=== PATIENT | female | born 2000 | race Caucasian/White ===

== ENCOUNTER 2024-12-26 19:04 | Emergency (ER) | payer OTHER, SELFPAY ==
--- NOTE | ~2024-12-26 | XR_ITS ---
CLINICAL HISTORY: asthma attack 1 view chest x-ray Comparison: None Findings: No consolidation or effusion. Normal size heart. No acute fracture. IMPRESSION: 1. No acute findings. This document has been electronically signed by: Alexander Gonsalves MD on 12/26/2024 20:16:21
[2024-12-26 19:17] VITALS: BP 109/62; BP 125/67; PULSE 66; PULSE 83; RESP 16; TEMP 36.9; O2SAT 100; O2SAT 97; BMI 31.6
[2024-12-26 19:58] LABS: MANUAL DIFF FLAG NO
[2024-12-26 20:01] LABS: Basophils Percent Auto 0.4 % (0-2); Eosinophils Absolute Auto 0.1 X10*3/uL (0.0-0.4); Eosinophils Percent Auto 0.7 % (0-4); Hematocrit 40.8 % (37.0-47.0); Hemoglobin 14.4 g/dl (12.0-16.0); Imm Gran Abs Auto 0.02 X10*3/uL (0.00-0.03); Imm Gran Pct Auto 0.2 % (0.0-0.4); Lymphocytes Absolute Auto 1.7 X10*3/uL (1.2-4.9); Mean Corpuscular HGB Conc 35.3 g/dl (31.0-35.0); Mean Corpuscular Volume 90.7 fL (80.0-98.0); Mean Platelet Volume 8.9 fL (9.4-12.3); Monocytes Absolute Auto 0.6 X10*3/uL (0.1-1.2); Monocytes Percent Auto 5.5 % (2-11); Neutrophils Absolute Auto 8.2 x10*3/uL (2.0-8.3); Neutrophils Percent Auto 77.2 % (45-73); Platelet Count 345 X10*3/uL (160-400); Red Cell Distribution Width 12.3 % (11.0-16.0); White Blood Count 10.6 X10*3/uL (4.8-10.8)
[2024-12-26 20:14] LABS: Alanine Aminotransferase 16 U/L (0-31); Albumin Level 4.5 g/dL (3.5-5.0); Alkaline Phosphatase 74 U/L (39-117); Anion Gap 15 (12-20); Aspartate Amino Transferase 22 U/L (5-31); Bilirubin Total 0.4 mg/dL (0.0-1.0); Blood Urea Nitrogen 9 mg/dL (9-16); Calcium 9.1 mg/dL (8.4-10.2); Carbon Dioxide 20 mmol/L (22-29); Chloride 109 mmol/L (96-108); Creatinine Clr Calc Pharmacy 105.4; Estimated Glomerular Filt Rate > 60; Glucose Random 100 mg/dL (60-115); Potassium 3.5 mmol/L (3.3-5.1); Sodium 140 mmol/L (135-145); Total Protein 8.2 g/dL (6.5-8.0)
[2024-12-26 20:22] LABS: HCG Quantitative < 2 mIU/mL
[2024-12-26 20:37] LABS: Influenza A PCR NEGATIVE (Negative); Influenza B PCR NEGATIVE (Negative); Resp Syncy Virus RNA Qual PCR NEGATIVE (Negative); SARS COV2 PCR INHOUSE NEGATIVE (Negative)
[2024-12-26 22:31] VITALS: BP 123/67; PULSE 65; RESP 16; TEMP 36.4; O2SAT 99
--- NOTE | 2024-12-26 22:57 | ED_ITS ---
HPI - Asthma General Chief Complaint: Asthma Stated Complaint: SOB, coming from pd lockup Time Seen by Provider: 12/26/24 22:57 History of Present Illness ED Provider: Marlon ECHEVERRIA Narrative: The patient is a 24-year-old female who was taken into police custody today. She has a history of asthma. She says that when she was taken into custody she should not have her albuterol inhaler. She says that she developed shortness of breath at the police lock up. An ambulance was called and she was brought to the hospital. She received a DuoNeb from paramedics. She was feeling better by the time she arrived here. She has had no fever, sweats, chills. She does not feel that she would require prednisone at this point but she is hoping for an albuterol inhaler. Related Data Allergies Allergy/AdvReac Type Severity Reaction Status Date / Time chlorpheniramine Allergy Severe HIVES Verified 12/26/24 19:31 [From TRIAMINIC] From TRIAMINIC Allergy Severe HIVES Uncoded 12/26/24 19:31 Review of Systems 2 Review of Systems: Yes all other systems are reviewed and are negative [facility] Social History Social History Smoked in Last 30 Days: No Use of substances other than those prescribed or required for medical reasons: No Substance Use Type: Marijuana Advance Directives: No Advance Directives Information Provided: Yes Do you have a plan to hurt others: No Plan Patient : No Physical Exam 2 Vital Signs: Vital Signs: Last Vital Signs Temp 97.5 F 12/26/24 23:31 Pulse 65 12/26/24 23:31 Resp 16 12/26/24 23:31 BP 123/67 12/26/24 23:31 Pulse Ox 99 12/26/24 23:31 O2 Del Method Room Air 12/26/24 23:31 BMI result Body Mass Index 31.6 Const: Other: the patient is awake, alert, pleasant, cooperative. She does not appear in distress at all. Orientation/consciousness: patient oriented x3 HEENT: Head: Yes normal to inspection Face and sinus: Yes normal facial exam Mouth: Normal oral and palatal mucosa present and moist mucous membranes Eyes: General: appearance normal, both eyes and all related structures Neck: Neck: Yes full ROM and Yes no lymphadenopathy Resp: Effort & Inspection: normal respiratory effort Auscultation: clear to auscultation bilaterally Cardio: Rate: regular rate Rhythm: regular rhythm Heart sounds: S1 normal heart sound present and S2 normal heart sound present GI: Other: Abdomen is soft and nontender Skin: General skin exam: no rashes or lesions noted Neuro: General: patient oriented x3, tone normal, no focal motor deficits and CN's II-XI intact bilaterally Extrem: Other: no calf swelling or tenderness. No asymmetry. No edema. Medications Administered Discontinued Medications Generic Name Dose Route Start Last Admin Trade Name Anayeli PRN Reason Stop Dose Admin Albuterol Sulfate 2 puff 12/26/24 23:27 12/26/24 23:34 Albuterol Sulfate 90 Mcg 8 Gm Inhaler INHALE 12/26/24 23:28 2 puff ONCE ONE Administration Medical Decision Making Medical Decision Making [facility] Narrative: The patient is a 24-year-old in police custody who complained of shortness of breath after being taken into custody and was brought here by police for evaluation of these symptoms. The patient says she is an asthmatic who normally uses her inhaler every 4 hours. She received a bronchodilator treatment prior to my evaluation and her lungs now sound clear. She was asked whether she might benefit from prednisone. She did not think so. She says she has a lot of experience with asthma. She simply wants to have access to an albuterol while she is in police lock up. She will be discharged with an albuterol inhaler. Lab Data 12/26/24 19:54 12/26/24 19:54 Labs: Lab Results 12/26/24 Range/Units 19:54 WBC 10.6 (4.8-10.8) X10*3/uL RBC 4.50 (4.20-5.50) X10*6/uL Hgb 14.4 (12.0-16.0) g/dl Hct 40.8 (37.0-47.0) % MCV 90.7 (80.0-98.0) fL MCH 32.0 (27.0-33.0) pg MCHC 35.3 H (31.0-35.0) g/dl RDW 12.3 (11.0-16.0) % Plt Count 345 (160-400) X10*3/uL MPV 8.9 L (9.4-12.3) fL Immature Gran % (Auto) 0.2 (0.0-0.4) % Neut % (Auto) 77.2 H (45-73) % Lymph % (Auto) 16.0 L (20-40) % Chambers % (Auto) 5.5 (2-11) % Eos % (Auto) 0.7 (0-4) % Baso % (Auto) 0.4 (0-2) % Lymph # (Auto) 1.7 (1.2-4.9) X10*3/uL Chambers # (Auto) 0.6 (0.1-1.2) X10*3/uL Eos # (Auto) 0.1 (0.0-0.4) X10*3/uL Baso # (Auto) 0.0 (0.0-0.2) X10*3/uL Abs Immat Gran (auto) 0.02 (0.00-0.03) X10*3/uL Absolute Neuts (auto) 8.2 (2.0-8.3) x10*3/uL Absolute Nucleated RBC 0.000 (0.0-0.012) X10*3/uL Nucleated RBC % (auto) 0.0 (0.0-0.2) /100WBC Sodium 140 (135-145) mmol/L Potassium 3.5 (3.3-5.1) mmol/L Chloride 109 H (96-108) mmol/L Carbon Dioxide 20 L (22-29) mmol/L Anion Gap 15 (12-20) BUN 9 (9-16) mg/dL Creatinine 0.76 (0.5-1.4) mg/dL Estim Creat Clear Calc 105.4 Estimated GFR > 60 Random Glucose 100 (60-115) mg/dL Calcium 9.1 (8.4-10.2) mg/dL Total Bilirubin 0.4 (0.0-1.0) mg/dL AST 22 (5-31) U/L ALT 16 (0-31) U/L Alkaline Phosphatase 74 (39-117) U/L Total Protein 8.2 H (6.5-8.0) g/dL Albumin 4.5 (3.5-5.0) g/dL Beta HCG, Quant < 2 mIU/mL Influenza Type A (PCR) NEGATIVE (Negative) Influenza Type B (PCR) NEGATIVE (Negative) RSV RNA Qual (PCR) NEGATIVE (Negative) SARS-CoV-2 RNA (RT-PCR) NEGATIVE (Negative) Discharge Plan Discharge Clinical Impression: Asthma exacerbation Patient Disposition: Home, Self-Care Additional Instructions: Your chest x-ray and blood testing today are reassuring. Please use the albuterol inhaler provided, 2 puffs every 4 hours as needed. Please follow up soon with your regular doctor. Return to the emergency room if you feel your breathing if significantly worse. Interventions: ED Discharge Assessment Last Done: 12/26/24 23:31 Discharge Date/Time: 12/26/24 23:41 Print Language: Peruvian
[2024-12-26 23:31] VITALS: BP 123/67; PULSE 65; RESP 16; TEMP 36.4; O2SAT 99
[2024-12-26] MEDS: Albuterol Sulfate 90 MCG 8 GM INHALER 2 PUFF INHALE (23:34)
== END 2024-12-26 23:41 | disposition home or self-care (01) ==
PROVIDERS: Emergency Provider Emergency Medicine
DX: J45.901 Unspecified asthma with (acute) exacerbation (principal); R06.02 Shortness of breath; R10.2 Pelvic and perineal pain; Z79.899 Other long term (current) drug therapy; Z03.818 Encounter for observation for suspected exposure to other biological agents ruled out
CPT/HCPCS: 0241U; 36415; 71045; 80053; 84702; 85025; 99284

== ENCOUNTER → 2024-12-26 19:39 | Outpatient (BNV) | payer OTHER, SELFPAY | PROVIDERS: Visit Provider Radiology Diagnostic Radiology | DX: R06.02 Shortness of breath (principal) | CPT/HCPCS: 71045 ==

== ENCOUNTER 2025-02-25 17:05 | Emergency (ER) | payer OTHER, SELFPAY ==
--- NOTE | ~2025-02-25 | XR_ITS ---
CLINICAL HISTORY: coughing Chest Radiograph Comparison: 12/26/24 Findings: No cardiomegaly. Normal mediastinal contours. No pneumothorax. No focal opacity. Peribronchial thickening. No pleural effusion. Normal upper abdomen. No fracture. Impression: Peribronchial thickening may indicate bronchitis and can be seen in the setting of asthma. This document has been electronically signed by: Nuvia Rosas MD on 02/25/2025 18:50:30
[2025-02-25 17:34] VITALS: BP 100/64; PULSE 81; RESP 16; TEMP 37.1; O2SAT 94; BMI 31.2
--- NOTE | 2025-02-25 17:40 | ED_ITS ---
HPI - Asthma General Chief Complaint: Asthma Stated Complaint: Asthma Time Seen by Provider: 02/25/25 18:45 Source: patient Mode of arrival: ambulatory Limitations: no limitations History of Present Illness ED Provider: FAZAL ECHEVERRIA Narrative: 24 yo female with PMH of asthma no recent prednisone use and only rescue inhaler she thinks she was irritated by allergies she has been trying zyrtec. She reports clear cough sputum and wheezing for a couple of days. No fevers. She has no chest pain. She denies sick contacts or travel. She thinks she needs more than just a rescue inhaler. She does not have a nebulizer either. MD complaint: asthma attack , shortness of breath and wheezing Onset (ago): day(s) (few) Severity: moderate Context: allergen exposure Associated symptoms: productive cough Asthma History: childhood onset Treatments Prior to Arrival: inhaled bronchodilator Related Data Previous Rx's ?Medication ?Instructions ?Recorded albuterol sulfate 90 mcg/actuation 2 puff inhalation QID PRN 02/25/25 aerosol inhaler shortness of breath or wheezing #6.7 grams azithromycin 250 mg tablet See Rx Instructions PO .COMPLEX #6 02/25/25 tabs fluticasone 100 mcg-salmeterol 50 1 inh inhalation BID #60 ea 02/25/25 mcg/dose blistr powdr for inhalation (Wixela Inhub) prednisone 20 mg tablet 40 mg (2 x 20 mg) PO DAILY 5 days 02/25/25 #10 tabs Allergies Allergy/AdvReac Type Severity Reaction Status Date / Time chlorpheniramine Allergy Severe HIVES Verified 02/25/25 17:36 [From TRIAMINIC] From TRIAMINIC Allergy Severe HIVES Uncoded 02/25/25 17:36 Review of Systems Review of Systems: Constitutional : No Fever, No Chills ENT/Mouth : No Hoarseness, No sore throat, No Rhinorrhea Eyes: No Redness, No Discharge, No Vision Changes Cardiovascular : No Chest Pain, positive SOB, positive Dyspnea on Exertion, No Edema Respiratory : positive Cough, pos Sputum, positive Wheezing, Gastrointestinal : No Nausea, No Vomiting, No Diarrhea, No abdominal Pain Genitourinary : No Dysuria, No Hematuria Musculoskeletal : No joint pain, No Myalgias Skin : No rash Neuro : No Weakness, No Numbness, No Headache Psych : No anxiety, depression Heme/Lymph: No Bruising, No Bleeding Endocrine : No Polyuria, No Polydipsia All other systems reviewed and are negative [facility] Past Medical History Attestation statement: The following information was validated with the patient. Source: old records reviewed Medical History Asthma Social History Social History (Updated 02/25/25 @ 19:05 by Tram Galeas DO) Patient Tobacco Use Status: Never used Tobacco Smoked in Last 30 Days: No Use of substances other than those prescribed or required for medical reasons: No Substance Use Type: Marijuana Advance Directives: No Advance Directives Information Provided: No Physical Exam Vital Signs: Vital Signs: Last Vital Signs Temp 98.9 F 02/25/25 20:47 Pulse 82 02/25/25 20:47 Resp 16 02/25/25 20:47 BP 118/83 02/25/25 20:47 Pulse Ox 98 02/25/25 20:47 O2 Del Method Room Air 02/25/25 20:47 BMI result Body Mass Index 31.2 Appearance: Alert. Oriented X3. No acute distress. Eyes: Pupils equal, round and reactive to light. ENT: Pharynx normal. Neck: Normal inspection. Neck supple. CVS: Normal heart rate and rhythm. Pulses normal. Respiratory: No respiratory distress. Breath sounds diminished with diffuse insp and exp wheezes throughout Abdomen: Soft and nontender. Skin: Skin warm and dry. Normal skin color. Normal skin turgor. Extremities: No lower extremity edema. No calf ttp Neuro: Oriented X 3. No motor deficit. No sensory deficit. CN2-12 intact Course Course Course Narrative: RME: 24-year-old female presents to the ED for coughing, wheezing with no relief with albuterol inhaler. Patient states history of seasonal allergies. Patient states history of bronchitis. Lung exam positive for expiratory wheezing. ED for myocarditis SARs strep chest x-ray ordered. Medications Administered Discontinued Medications Generic Name Dose Route Start Last Admin Trade Name Freq PRN Reason Stop Dose Admin Albuterol Sulfate 5 mg/ 0 mg 02/25/25 19:39 02/25/25 19:42 Albuterol/Ipratropium 3 ml INHALE 02/25/25 19:40 1 each ONCE ONE Administration Magnesium Sulfate 2 gm in 50 mls @ 150 mls/hr 02/25/25 18:52 02/25/25 19:32 Magnesium Sulfate/H2o IV 02/25/25 19:11 Infused ONCE ONE Infusion Methylprednisolone Sodium Succinate 60 mg 02/25/25 18:52 02/25/25 19:09 Methylprednisolone Sod Succ 125 Mg/2 Ml Vial IVPUSH 02/25/25 18:53 60 mg ONCE ONE Administration Medical Decision Making Medical Decision Making MDM Narrative: 24 yo female with asthma only on albuterol and no recent prednisone use at this time given her complaints will obtain viral panel, CXR, IV steroids, IV magnesium - if improved will DC home on prednisone, zpak, steroid inhaler. Differential Diagnosis Differential Diagnoses: The differential diagnosis associated with the presentation includes URI, asthma, bronchitis Admission/Observation Consideration of admission/observation: Escalation of care including admission/observation considered if she continues to improve as she has would DC home with supportive therapy lungs clearing up and 98% on neb therapy patient feels better and is asking to go home at this time stable for DC Lab Data [facility] Lab Attestation statement: I reviewed the patient's lab results. Labs: Lab Results 02/25/25 Range/Units 17:56 Influenza Type A (PCR) NEGATIVE (Negative) Influenza Type B (PCR) NEGATIVE (Negative) RSV RNA Qual (PCR) NEGATIVE (Negative) SARS-CoV-2 RNA (RT-PCR) NEGATIVE (Negative) S. pyogenes GrpA RADHA Negative (Negative) Independent Interpretation I performed an independent interpretation of an: Plain X-Ray (bronchitis) Radiology Impression Discussion of test interpretation with radiology: I have reviewed the radiologist's reading. External Record Review External record reviewed: Outpatient record Prescription Management I considered prescription management with: Antibiotic and Other Discharge Plan Discharge Clinical Impression: Asthma with acute exacerbation Patient Disposition: Home, Self-Care Instructions: Asthma (ED) Additional Instructions: no pneumonia on chest xray negative for flu covid rsv return for any worsening symptoms or concerns START THE WIXELA STEROID INHALER AFTER YOU FINISH YOUR PREDNISONE COURSE Prescriptions: New azithromycin 250 mg tablet See Rx Instructions .ROUTE .COMPLEX Qty: 6 0RF Rx Instructions: For 250 mg dose pack: take 500 mg today (day 1), then 250 mg for 4 days (days 2-5) prednisone 20 mg tablet 40 mg PO DAILY 5 Days Qty: 10 0RF albuterol sulfate 90 mcg/actuation HFA aerosol inhaler 2 puff inhalation QID PRN (Reason: shortness of breath or wheezing) Qty: 6.7 0RF fluticasone propion-salmeterol [Wixela Inhub] 100-50 mcg/dose blister with device 1 inh inhalation BID Qty: 60 1RF Stand Alone Forms: Work/School Release Interventions: ED Discharge Assessment Last Done: 02/25/25 20:47 Discharge Date/Time: 02/25/25 20:47 Print Language: Mexican
[2025-02-25 18:18] LABS: IDNOW Serial# 55D5AD1C; Strep A Nucleic Acid Negative (Negative)
[2025-02-25 18:49] LABS: Influenza A PCR NEGATIVE (Negative); Influenza B PCR NEGATIVE (Negative); Resp Syncy Virus RNA Qual PCR NEGATIVE (Negative); SARS COV2 PCR INHOUSE NEGATIVE (Negative)
[2025-02-25] MEDS: methylPREDNISolone Sod Succ 125 MG/2 ML VIAL 60 MG IVPUSH (19:09)
[2025-02-25] MEDS: Magnesium Sulfate/H2O 2 GM/50 ML PIGGYBACK IV (19:12)
--- OUTSIDE RECORDS SUMMARY | 2025-02-25 19:13 | XMS_ITS | Encounter Summary ---
Author Organization [facility] Address [address] [place] [address] Phone Care Team Providers Care Scientific Software Engineer Name Role Phone Shavonne Pantoja NP Primary Care Provider Flori jones Encounter Details Date Type Department Care Team (Late st Contact Info) Description 06/29/2017 Conversion Encounter [facility] - [address] [address] Social History Tobacco Use Types Packs/Day Years Used Date Smoking Tobacco: Never Comments:Never smoker Comments Unknown Sex and Gender Information Value Date Recorded Sex Assigned at Not on file Legal Sex Female 5:23 PM EDT Gender Identity Not on file Sexual Orientation Not on file documented as of this encounter Plan of Treatment Not on file documented as of this encounter Visit Diagnoses Not on filedocumented in this encounter Care Teams Scientific Software Engineer Relationship Specialty Start Date End Date Shavonne Pantoja NP PCP - General 06/23/17 02/12/23 documented as of this encounter
--- OUTSIDE RECORDS SUMMARY | 2025-02-25 19:13 | XMS_ITS | Clinical Summary ---
Author Organization [facility] Address [address] [place] [id number] Phone Care Team Providers Care Pellet Mill Operator Name Role Phone Unavailable Primary Care Provider Unavailabl e Allergies Active Allergy Reactions Criticality Noted Date Comments Amoxicillin-Pot Clavulanate Rash Low Diphenhydramine Rash Low Loratadine 06/12/2018 Medications fluticasone HFA (FLOVENT HFA) 110 MCG/ACT inhaler FLOVENT HFA; inhale 2 puff by inhalation route twice a day; 110 MCG/ACTUATION; 03/22/2017; Active 7 Active albuterol HFA (PROAIR HFA) 108 (90 Base) MCG/ACT inhalerIndication s:Mild intermittent asthma with acute exacerbation in adult 2 puffs q 4 hours prn for wheeze 1 Units 9 Active Active Problems Problem Noted Date Diagnosed Date Mild persistent asthma 02/06/2013 Overview (06/12/2018): On daily flovent 110 for preventive therapy. Uses albuterol for rescue therapy. 2016. Comments Yes Immunizations Immunization Administration Dates Next Due DTaP 05/03/2004 DTaP 5 03/21/2001, 0,04/14/2000,03/03 HPV, Quadrivalent 02/02/2015,11/10/2014,11/26/19 14 Hep A, ped/adol 11/10/2014,03/10/2010 Hep B, ped/adol 04/29/2015, 5,02/11/2002,10/11,1999 Hib (PRP-T) 12/08/2000, 0,04/14/2000,03/03 IPV 05/03/2004, 0,04/14/2000,03/03 Influenza, injectable, MDCK, preservative free, quadrivalent 10/19/2016 Influenza, injectable, quadrivalent 12/16/2015,0 01/05/2015 Influenza, injectable, quadr ivalent, preservative free 08/29/2018,09/06/2017,11/26/2013 MMR 05/03/2004,09/08/2000 Meningococcal Conj (Menactra) MCV4P 03/22/2017,0 04/17/2012 Pneumococcal Conjugate 03/21/2001,12/08/2000, Tdap 03/10/2010 Varicella 03/10/2010,12/08/2000 Family History Medical History Relation Name Comments No Known Problems Brother inder No Known Problems Father paula Asthma Mother kaylee Obesity Mother kaylee Other Mother kaylee Heart disease (Premature) Other Stroke Other No Known Problems Sister 1 novserjio Relation Name Status Comments Brother inder Alive Father paula Alive Mother kaylee Alive Mother: Hemoglo binopathy, Obesity, Asthma Other Family history of *CVA/Stroke, Family history of *Heart Disease, No family history of Migraines, Family history of Obesity, No family history of Strabismus, Family history of Hyperlipidemia, Family history of Asthma, No family history of *Thrombophilia, No family history of Cancer, No family history of Seizure disorder, No family history of Deafness, No family history of Diabetes mellitus, No family history of Developmental dislocation of hip, No family history of ADD/ADHD, No family history of *Sudden /[place] under 55 Sister 1 Alive Sister: Alive a nd well, Alive and well Sister 2 donaldo Alive Sister: Alive a nd well, Alive and well Social History Tobacco Use Types Packs/Day Years Used Date Smoking Tobacco: Never Smokeless Tobacco: Never Comments:Never smoker Alcohol Use Standard Drinks/Week Comments Yes 0 (1 standard drink = 0.6 oz pur e alcohol) rare Hunger/Food Answer Date Recorded No 11/20/2020 Stable Housing Answer Date Recorded No 11/20/2020 Transportation Concerns Answer Date Rec orded No 11/20/2020 Hazards in Home Answer Date Recorded No 11/20/2020 Financing Utilities Answer Date Recorde d No 11/20/2020 Safety at Home Answer Date Recorded No 11/20/2020 Outside Support Answer Date Recorded No 11/20/2020 Understanding Health Concerns Answer Da te Recorded No 11/20/2020 Financing Health Concerns Answer Date R ecorded No 11/20/2020 Missing School or Work Answer Date Jet rded No 11/20/2020 Comments Yes Sex and Gender Information Value Date Recorded Sex Assigned at Not on file Legal Sex Female 5:23 PM EDT Gender Identity Not on file Sexual Orientation Not on file Last Filed Vital Signs Vital Sign Reading Time Taken Comments Blood Pressure 110/61 01/28/2019 5:45 PM EDT Pulse 96 01/28/2019 5:45 PM EDT Temperature 35.9 ??C (96.6 ??F) 01/28/2019 5:45 PM ED T Respiratory Rate - - Oxygen Saturation 98% 01/28/2019 5:45 PM EDT Inhaled Oxygen Concentration - - Weight 73.5 kg (162 lb) 01/28/2019 5:45 PM EDT Height 157.5 cm (5' 2 ) 08/29/2018 10:50 AM EDT Body Mass Index 29.63 08/29/2018 10:50 AM EDT Plan of Treatment Health Maintenance Due Date Last Done Comments DTaP,Tdap,and Td Vaccines (7 - Td or Tdap) 03/10/2020 03/10/2010, 05/03/2004, 03/21/2001, Additional history exists Influenza Vaccines (#1) 2024 08/29/20 18, 09/06/2017, 10/19/2016, Additional history exists COVID-19 Vaccine ( season) 2024 HIB Vaccines Completed 12/08/2000, 05/13, 04/14/2000, Additional history exists Pneumococcal Vaccine Completed 03/21/2001, 12/08/2000, 09/07/2000 IPV Vaccines Completed 05/03/2004, 08/14, 04/14/2000, Additional history exists MMR Vaccines Completed 05/03/2004, 09/08/2000 Varicella Vaccines Completed 03/10/2010, 12/08/2000 Hepatitis A Vaccines Completed 11/10/2014, 03/10/20 10 HPV Vaccines Completed 02/02/2015, 10/14, 11/26/2013 Hepatitis B Vaccines Completed 04/29/2015, 02/02/2015, 02/11/2002, Additional history exists Meningococcal Vaccine Completed 03/22/2017, 012 Men B Vaccine Aged Out No longer kaing cecille based on patient's age to complete this topic Procedures * Due to [facility] law, this organization might not be sharing sensitive test results. Procedure Name Priority Date/Time Associated Diagnosis Comments CHLAMYDIA AND GONORRHEA, AMPLIFIED Routine 08/29/2018 11:00 AM EDT Screening examination for bacterial and spirochetal disease from Last 3 Months or Most Recently Relevant to Health Maintenance Results * Due to [place] [employer] law, this organization might not be sharing sensitive test results. * Chlamydia and Gonorrhoea, Amplified (08/29/2018 11:00 AM EDT) Chlamydia Trachomatis, DNA Probe NEGATIVE (NEG) [facility] Comment: No Chlamydia Trachomatis RNA detected in this patient's sample ? (REFERENCE RANGE/NORMAL VALUE: NOT DETECTED) ? Note: This test uses dry kiln loader- mediated amplification method to detect rRNA from C. Trachomatis URINE GC AMP PROBE NEGATIVE (NEG) [facility] Comment: No Neisseria Gonorrhoeae RNA detected in this patient's sample ? (REFERENCE RANGE/NORMAL VALUE: NOT DETECTED) ? NOTE: This test uses dry kiln loader-mediated amplification method to detect rRNA from N.Gonorrhoeae. A negative result does not preclude infection. In the case of a negative urine result, testing of an endocervical(female) or urethral (male) specimen is recommended if there is high clinical suspicion of infection. Due to very high sensitivity of Nucleic Acid Amplification Test, false positive results may occur. Therefore, specimen handling is extremely important. In patients in whom the disease is unlikely, additional sample for testing should be considered after an initial positive result. The performance characteristics of this test have not been evaluated in children. The Aptima Combo2 assay is not intended for the evaluation of suspected sexual abuse or for other medico-legal indications. The ordering provider should assess if the patient had consensual sex without risk of sexual abuse. Consult the [facility] if needed. Contact phone number . Therapeutic failure or success cannot be determined with the Aptima Combo2 assay since nucleic acid may persist following appropriate antimicrobial therapy. The Centers for Disease Control and Prevention (CDC) recommends confirmatory retesting using culture or a different nucleic acid amplification test when positive results occur, if indicated. Testing performed or reported by [facility], a Service of [facility], [facility] [place] [address] [place] [id number] Tawnya Bautista MD, Blower Room Attendant Urine 08/29/2018 11:0 0 AM EDT 08/29/2018 10:17 PM EDT us Lazarus Cruz MD LAB MICROBIOLOGY - GENERAL ORDER LIANE Final Result [facility] from Last 3 Months or Most Recently Relevant to Health Maintenance
--- OUTSIDE RECORDS SUMMARY | 2025-02-25 19:13 | XMS_ITS | Encounter Summary ---
Author Organization [facility] Address [address] [place] [address] Phone Care Team Providers Care Shoe Dresser Name Role Phone Shavonne Pantoja MONEY ROOM TELLER Primary Care Provider Flori jones Encounter Details Date Type Department Care Team (Late st Contact Info) Description 07/07/2016 Documentation [facility] [address] [place] [address] Family Medicine, Physician [address] [place] [address] Social History Tobacco Use Types Packs/Day Years Used Date Smoking Tobacco: Never Assessed Comments Unknown Sex and Gender Information Value Date Recorded Sex Assigned at Not on file Legal Sex Female 5:23 PM EDT Gender Identity Not on file Sexual Orientation Not on file documented as of this encounter Plan of Treatment Not on file documented as of this encounter Visit Diagnoses Not on filedocumented in this encounter Care Teams Shoe Dresser Relationship Specialty Start Date End Date Shavonne Pantoja NP PCP - General 06/23/17 02/12/23 documented as of this encounter
--- OUTSIDE RECORDS SUMMARY | 2025-02-25 19:13 | XMS_ITS | Encounter Summary ---
Author Organization [facility] Address [address] [place] [address] Phone Care Team Providers Care Core Blower Name Role Phone Shavonne Pantoja SNACK STEWARD Primary Care Provider Flori jones Encounter Details Date Type Department Care Team (Late st Contact Info) Description 05/27/2014 Documentation [facility] [place] Family Medicine [address] [place] [address] Family Medicine, Physician [address] [place] [address] Social History Tobacco Use Types Packs/Day Years [...] on filedocumented in this encounter Care Teams Core Blower Relationship Specialty Start Date End Date Shavonne Pantoja NP PCP - General 06/23/17 02/12/23 documented as of this encounter
--- OUTSIDE RECORDS SUMMARY | 2025-02-25 19:13 | XMS_ITS | Encounter Summary ---
Author Organization [facility] Address [address] [place] [address] Phone Care Team Providers Care Marketing Traffic Manager Name Role Phone Shavonne Pantoja FOOD TASTER Primary Care Provider Flori jones Encounter Details Date Type Department Care Team (Late st Contact Info) Description 05/01/2014 Documentation [facility] [place] Family Medicine [address] [place] [address] Family Medicine, Physician [address] [place] [address] Social History Tobacco Use Types Packs/Day Years [...] on filedocumented in this encounter Care Teams Marketing Traffic Manager Relationship Specialty Start Date End Date Shavonne Pantoja NP PCP - General 06/23/17 02/12/23 documented as of this encounter
--- OUTSIDE RECORDS SUMMARY | 2025-02-25 19:13 | XMS_ITS | Encounter Summary ---
Author Organization [facility] Address [address] [place] [address] Phone Care Team Providers Care Teacher'S Aide Name Role Phone Shavonne Pantoja ELECTRICIAN WIRING Primary Care Provider Flori jones Encounter Details Date Type Department Care Team (Late st Contact Info) Description 07/25/2012 Documentation [facility] [place] Family Medicine [address] [place] [address] Family Medicine, Physician [address] [place] [address] Social History Tobacco Use Types Packs/Day Years [...] on filedocumented in this encounter Care Teams Teacher'S Aide Relationship Specialty Start Date End Date Shavonne Pantoja NP PCP - General 06/23/17 02/12/23 documented as of this encounter
--- OUTSIDE RECORDS SUMMARY | 2025-02-25 19:13 | XMS_ITS | Encounter Summary ---
Author Organization [facility] Address [address] [place] [address] Phone Care Team Providers Care Numerical Control Machine Tool Operator Name Role Phone Shavonne Pantoja ACUTE CARE CERTIFIED NURSING ASSISTANT Primary Care Provider Flori jones Encounter Details Date Type Department Care Team (Late st Contact Info) Description 11/07/2014 [place] [facility] [place] [address] [place] [address] Family Medicine, Physician [address] [place] [address] Social History Tobacco Use Types Packs/Day Years [...] on filedocumented in this encounter Care Teams Numerical Control Machine Tool Operator Relationship Specialty Start Date End Date Shavonne Pantoja NP PCP - General 06/23/17 02/12/23 documented as of this encounter
[2025-02-25] MEDS: Albuterol Sulfate 5 MG, Albuterol/Iprat 2.5/0.5MG 3 ML 3 ML INHALE (19:42)
[2025-02-25 19:43] VITALS: PULSE 71; RESP 26; O2SAT 97
--- NOTE | 2025-02-25 20:42 | PC.NURSE ---
Pt reports feeling much better, provider to bedside for reeval, cleared for dc home.
[2025-02-25 20:47] VITALS: BP 118/83; PULSE 82; RESP 16; TEMP 37.2; O2SAT 98
== END 2025-02-25 20:47 | disposition home or self-care (01) ==
PROVIDERS: Physician Assistant; Emergency Provider Emergency Medicine; PCP Internal Medicine
DX: J45.901 Unspecified asthma with (acute) exacerbation (principal)
CPT/HCPCS: 0241U; 71045; 87651; 94640; 96374; 99284; J2919; J3475

== ENCOUNTER → 2025-02-25 17:40 | Outpatient (BNV) | payer OTHER, SELFPAY | PROVIDERS: Emergency Provider Emergency Medicine; PCP Internal Medicine; Visit Provider Radiology Diagnostic Radiology | DX: R91.8 Other nonspecific abnormal finding of lung field (principal); R05.9 Cough, unspecified | CPT/HCPCS: 71045 ==